=== PATIENT | male | born 1950 | race Caucasian/White ===

== ENCOUNTER 2019-03-26 09:55 | Emergency (ER) | payer MEDICARE ==
[~2019-03-26] VITALS: Ht 172.7 cm; Wt 89.4 kg
[2019-03-26 10:50] LABS: ABSOLUTE BASOPHILS 0.1 thou/uL (0.0-0.2); ABSOLUTE EOSINOPHILS 0.6 thou/uL (0.0-0.7); ABSOLUTE LYMPHOCYTES 1.4 thou/uL (0.8-5.3); ABSOLUTE MONOCYTES 1.2 thou/uL (0.0-1.2); ABSOLUTE NEUTROPHILS 10.6 thou/uL (1.6-8.1); BASOPHILS 0.7 %; EOSINOPHILS 4.4 %; HEMATOCRIT 39.9 % (42.0-52.0); HEMOGLOBIN 13.4 gm/dL (14.0-18.0); LYMPHOCYTES 9.7 %; MCH 30.7 pg (26.0-34.0); MCHC 33.5 g/dL (28.0-37.0); MCV 91.6 fL (80.0-100.0); MONOCYTES 8.7 %; MPV 7.3 fl. (7.2-11.1); NUCLEATED RBCS 0 /100WBC; PLATELET COUNT* 495 thou/uL (150-400); POLYS 76.5 %; RBC 4.35 mil/uL (4.50-6.00); RDW-CV 14.4 % (10.5-14.5); WBC 13.9 thou/uL (4.0-11.0)
[2019-03-26 10:58] LABS: CALCIUM 8.8 mg/dL (8.5-10.1); POTASSIUM 3.4 mmol/L (3.5-5.1)
[2019-03-26 11:03] LABS: ALBUMIN 3.2 g/dL (3.4-5.0); TOTAL BILIRUBIN 0.4 mg/dL (<0.1-1.0); TOTAL PROTEIN 7.4 g/dL (6.4-8.2)
[2019-03-26] MEDS ORDERED: BACTRIM DS TAB1 EACH PO ×2 (11:48→11:49)
[2019-03-26] MEDS ORDERED: KEFLEX500 M1 PO ×2 (11:48→11:49)
[2019-03-26] MEDS ORDERED: TRAMADOL 50 MG50 MG PO (11:49)
[2019-03-26 12:20] VITALS: BP 169/103
== END 2019-03-26 12:22 | disposition home or self-care (01) ==
LOC: M.ERS 09:55
PROVIDERS: Nurse Practitioner Family
DX: L03.317 Cellulitis of buttock (principal); L73.9 Follicular disorder, unspecified; Z88.0 Allergy status to penicillin; Z91.018 Allergy to other foods; Z88.8 Allergy status to other drugs, medicaments and biological substances

== ENCOUNTER 2021-07-18 09:32 | Inpatient (IN) | payer MEDICARE ==
[~2021-07-18] VITALS: Ht 170.2 cm; Wt 79.4 kg
[~2021-07-18 09:32] MED LIST: BACTRIM DS TAB1 EACH PO; KEFLEX500 M1 PO; TRAMADOL 50 MG50 MG PO
[2021-07-18 09:35] VITALS: BP 171/83
[2021-07-18 10:27] LABS: HEMATOCRIT 44.4 % (42.0-52.0); HEMOGLOBIN 14.8 gm/dL (14.0-18.0); MCH 30.3 pg (26.0-34.0); MCHC 33.3 g/dL (28.0-37.0); MPV 7.7 fl. (7.2-11.1); NUCLEATED RBCS 0 /100WBC; PLATELET COUNT* 330 thou/uL (150-400); RBC 4.88 mil/uL (4.50-6.00); RDW-CV 14.1 % (10.5-14.5); WBC 16.3 thou/uL (4.0-11.0)
[2021-07-18 10:34] LABS: CALCIUM 8.3 mg/dL (8.5-10.1); CREATININE 1.1 mg/dL (0.6-1.3)
[2021-07-18 10:38] LABS: TOTAL BILIRUBIN 0.7 mg/dL (<0.1-1.0); TOTAL PROTEIN 6.7 g/dL (6.4-8.2)
--- NOTE | 2021-07-18 12:16 | EKG ---
[place] [address] ELECTROCARDIOGRAM REPORT Name: BERNADETTE SANCHEZ Room: [facility]#: [id number] Admission: 07/18/21 Attend Phys: Discharge: Date of : 48 Date of Service: 07/18/21939 Report #: [id number] THIS REPORT FOR: //name// [facility] ED Test Date: 2021-07-18 Test Time: 09:40:27 Pat Name: BERNADETTE SANCHEZ Department: Room: Gender: Mechanical Maintenance Supervisor: : 1950 Requested By: Jose Enrique More Order Number: [id number] MD: Tito Mccrary Measurements Intervals [place] Rate: 104 P: 47 DE: 139 QRS: 37 QRSD: 70 T: 29 QT: 309 QTc: 407 Interpretive Statements Sinus tachycardia No previous ECG available for comparison Electronically Signed On 07-18-2021 12:16:21 [employer] by Tito Mccrary [email or web address] <ELECTRONICALLY SIGNED> By: Tito Mccrary MD, [facility] 07/18/21 1216 0940 [id number] Tito Mccrary MD, FACC /EPI
[2021-07-18 12:33] LABS: ABSOLUTE MONOCYTES 0.3 thou/uL (0.0-1.2); PLATELET ESTIMATE ADEQUATE
[2021-07-18 12:48] LABS: URINE BLOOD NEGATIVE (Negative); URINE COLOR YELLOW; URINE GLUCOSE-RANDOM NEGATIVE (Negative); URINE KETONES 1+ (Negative); URINE LEUKOCYTES-REFLEX NEGATIVE (Negative); URINE NITRITE-REFLEX NEGATIVE (Negative); URINE PROTEIN 2+ (Negative); URINE UROBILINOGEN 0.2 E.U./dl (0.2-1.0)
[2021-07-18 12:50] LABS: ICTOTEST (BILI CONFIRMATORY) Negative (Negative); URINE BILIRUBIN 1+ (Negative); URINE CLARITY HAZY
[2021-07-18 13:00] LABS: BACTERIA-REFLEX None Seen /HPF (None Seen); CASTS None Seen /LPF (None Seen); CRYSTALS None Seen /LPF (None Seen); MUCUS 0-3 Light strn/LPF (None Seen); SQUAMOUS 0-3 Few /LPF (0-3); URINE RBC None Seen /HPF (0-2); URINE WBC-REFLEX 0-5 Rare /HPF (0-5)
[2021-07-18 16:45] LABS: INFLUENZA A ANTIGEN Negative (Negative); INFLUENZA B ANTIGEN Negative (Negative)
[2021-07-18 17:35] VITALS: BP 145/75
--- NOTE | 2021-07-18 19:35 | NUR ---
CALLED ASKING FOR UPDATE. EXPLAIN TO THAT PT IS RESTING COMFORTABLY IN BED AND HAS NO COMPLAINTS AT THIS TIME. ENCOURAGED TO CALL ANY TIME SHE WANTS AN UPDATE.
[2021-07-18 21:35] VITALS: BP 119/75
[2021-07-19 01:35] VITALS: BP 119/75
[2021-07-19 05:45] VITALS: BP 132/70
[2021-07-19 08:53] LABS: HEMATOCRIT 40.5 % (42.0-52.0); HEMOGLOBIN 13.6 gm/dL (14.0-18.0); MCH 30.8 pg (26.0-34.0); MCHC 33.6 g/dL (28.0-37.0); MCV 91.7 fL (80.0-100.0); MPV 7.5 fl. (7.2-11.1); RBC 4.42 mil/uL (4.50-6.00); RDW-CV 14.2 % (10.5-14.5); WBC 15.6 thou/uL (4.0-11.0)
[2021-07-19 09:08] LABS: ALBUMIN 2.3 g/dL (3.4-5.0); CALCIUM 7.7 mg/dL (8.5-10.1); CREATININE 1.1 mg/dL (0.6-1.3); MAGNESIUM 2.1 mg/dL (1.8-2.4); POTASSIUM 3.7 mmol/L (3.5-5.1); TOTAL BILIRUBIN 0.4 mg/dL (<0.1-1.0); TOTAL PROTEIN 6.2 g/dL (6.4-8.2)
[2021-07-19 09:37] VITALS: BP 132/61
[2021-07-19 13:43] VITALS: BP 137/72
[2021-07-19 17:43] VITALS: BP 172/93
[2021-07-19 21:28] VITALS: BP 140/80
[2021-07-20 03:43] LABS: HEMATOCRIT 39.1 % (42.0-52.0); HEMOGLOBIN 12.9 gm/dL (14.0-18.0); MCH 30.1 pg (26.0-34.0); MCHC 33.1 g/dL (28.0-37.0); MCV 90.8 fL (80.0-100.0); MPV 7.6 fl. (7.2-11.1); RBC 4.31 mil/uL (4.50-6.00); RDW-CV 14.8 % (10.5-14.5); WBC 17.2 thou/uL (4.0-11.0)
[2021-07-20 04:10] LABS: ALBUMIN 2.1 g/dL (3.4-5.0); CALCIUM 7.5 mg/dL (8.5-10.1); CREATININE 1.1 mg/dL (0.6-1.3); MAGNESIUM 2.3 mg/dL (1.8-2.4); POTASSIUM 3.9 mmol/L (3.5-5.1); TOTAL BILIRUBIN 0.3 mg/dL (<0.1-1.0); TOTAL PROTEIN 5.9 g/dL (6.4-8.2)
[2021-07-20 07:13] VITALS: BP 153/87
--- NOTE | 2021-07-20 09:41 | NUR ---
Pt is admitted to the hospital on 07/18/21 for abdominal pain/Covid. Called at: [phone] to complete assessment. Pt lives with in a house with one step to enter. Pt was previously independent in ADL's and Mobility. No hx of HH, SNF, or DME. Pt fills his prescriptions at [facility] in [place]. Pt saw his PCP a month ago. Pt currently does not have DPOA paperwork. to discuss with spouse and we discussed paperwork can be completed while patient is in the hospital. CM to follow for discharge planning.
--- NOTE | 2021-07-20 18:15 | NUR ---
CM FOLLOWUP PT NOT MED CLEAR. PT ON 6L O2. CM TO FOLLOW FOR DC PLANNING NEEDS.
[2021-07-20 20:30] VITALS: BP 153/69
[2021-07-21 00:16] VITALS: BP 138/85
[2021-07-21 04:00] VITALS: BP 155/82
--- NOTE | 2021-07-21 04:55 | NUR ---
PT AO X4 UP AMBULATING IN ROOM. HE IS ON 6L NC AT START OF SHIFT, NOW ON 12L HFNC AND HAVING AN HARD TIME KEEPING SAT>90%. HE IS HAVING INCREASED COUGHING AND PRODUCION THIS PM SHIFT. MY PT IS A BIT IMPULISIVE. CALL LIGHT IN REACH AND BED ALARM ON FOR PT SAFETY
[2021-07-21 07:08] LABS: GLYCOHEMOGLOBIN (HGB A1C) 6.4 % (4.8-5.6)
[2021-07-21 08:22] VITALS: BP 148/87
[2021-07-21 09:50] LABS: HEMATOCRIT 41.8 % (42.0-52.0); HEMOGLOBIN 13.7 gm/dL (14.0-18.0); MCH 29.8 pg (26.0-34.0); MCHC 32.8 g/dL (28.0-37.0); MCV 91.1 fL (80.0-100.0); MPV 7.6 fl. (7.2-11.1); RBC 4.59 mil/uL (4.50-6.00); RDW-CV 14.4 % (10.5-14.5); WBC 15.8 thou/uL (4.0-11.0)
[2021-07-21 10:01] LABS: ALBUMIN 2.5 g/dL (3.4-5.0); CALCIUM 7.9 mg/dL (8.5-10.1); CREATININE 1.1 mg/dL (0.6-1.3); MAGNESIUM 2.4 mg/dL (1.8-2.4); POTASSIUM 3.7 mmol/L (3.5-5.1); TOTAL BILIRUBIN 0.5 mg/dL (<0.1-1.0); TOTAL PROTEIN 6.7 g/dL (6.4-8.2)
[2021-07-21 12:00] VITALS: BP 140/75
[2021-07-21 12:20] LABS: BE -3.9 mmol/L (-2 to +3); PO2 84.4 mmHg (75.0-100.0); pH 7.407 (7.340-7.450)
--- NOTE | 2021-07-21 13:31 | NUR ---
Nutrition: Pt admitted to COVID unit. Consult for wt change. Per [employer], wt is 175#. Spoke with RN: she is unaware of any wt loss. She did say pt ate 50% of last meal. N/V resolved. Regular diet ordered. Physician indiacted mild PCM based on hypoalbuminemia. Labs: WBC 15.8, alb 2.5, prealb 20.7, BG 148-168. BMI is 27.4. No nutrition interventions needed at this time. Consider low risk.
--- NOTE | 2021-07-21 15:54 | NUR ---
CM FOLLOWUP PT NOT MED CLEAR. PT ON 10L O2. CM TO FOLLOW FOR DC PLANNING.
[2021-07-21 16:00] VITALS: BP 138/71
--- NOTE | 2021-07-21 17:29 | NUR ---
PATIENT RESTING IN BED. MIDLINE TO LEFT UPPER ARM, SALINE LOCKED, PATENT. 92% ON 11L HIGH FLOW OXYGEN. BLOOD SUGARS MONITOR, INSULIN GIVEN NEEDED. REMAINS ON CONTINUOUS TELE MONITORING. ALL QUESTIONS AND CONCERNS ADDRESSED.
[2021-07-22 00:15] VITALS: BP 138/58
[2021-07-22 04:20] VITALS: BP 127/55
[2021-07-22 04:43] LABS: HEMATOCRIT 37.3 % (42.0-52.0); HEMOGLOBIN 12.2 gm/dL (14.0-18.0); MCH 29.8 pg (26.0-34.0); MCHC 32.7 g/dL (28.0-37.0); MCV 90.9 fL (80.0-100.0); MPV 8.1 fl. (7.2-11.1); NUCLEATED RBCS 0 /100WBC; PLATELET COUNT* 433 thou/uL (150-400); RBC 4.11 mil/uL (4.50-6.00); RDW-CV 14.5 % (10.5-14.5); WBC 11.1 thou/uL (4.0-11.0)
[2021-07-22 05:12] LABS: ALBUMIN 2.4 g/dL (3.4-5.0); CALCIUM 7.6 mg/dL (8.5-10.1); CREATININE 1.1 mg/dL (0.6-1.3); MAGNESIUM 2.3 mg/dL (1.8-2.4); POTASSIUM 3.8 mmol/L (3.5-5.1); TOTAL BILIRUBIN 0.4 mg/dL (<0.1-1.0); TOTAL PROTEIN 6.2 g/dL (6.4-8.2)
--- NOTE | 2021-07-22 05:18 | NUR ---
PT AO X4 LUING IN BED AT TIME OF ASSESSMENT. HE IS CURRENTLY ON 11L HFNC SATTING APPROPRIATELY. PT IS NSR ON TELEMETRY, DENIES PAIN. MEDS PER EMAR. PT VOIDING PER URINAL. MAKES NEEDS KNOWN WITH HOURLY ROUNDING. CALL LIGHT WITHIN REACH FOR PT SAFETY.
[2021-07-22 06:48] LABS: ABSOLUTE LYMPHOCYTES 0.9 thou/uL (0.8-5.3); ABSOLUTE MONOCYTES 0.4 thou/uL (0.0-1.2); ABSOLUTE NEUTROPHILS 9.8 thou/uL (1.6-8.1); PLATELET ESTIMATE INCREASED
[2021-07-22 08:15] VITALS: BP 142/65
[2021-07-22 12:00] VITALS: BP 153/80
--- NOTE | 2021-07-22 13:18 | NUR ---
CM FOLLOWUP PT NOT MED CLEAR AND ON 11L O2. CM TO FOLLOW FOR DC PLANNING.
--- NOTE | 2021-07-22 14:17 | CON ---
[address] [address] CONSULTATION Name: BERNADETTE SANCHEZ Room: [address] IN M.R.#: [id number] Admission: 07/18/21 Attend Phys: Libseth Bonilla MD Discharge: Date of : 48 Report #: [id number] THIS REPORT FOR: cc: FAM - No family physician/PCP FAM - No family physician/PCP Chas Joaquin MD ~ DATE OF CONSULTATION: 07/21/2021 CONSULT HAS BEEN REQUESTED BY: Lisbeth Bonilla MD INDICATION FOR CONSULTATION: Acute hypoxemic respiratory failure secondary to COVID-19. HISTORY OF PRESENT ILLNESS: A 70-year-old gentleman, nonsmoker, no significant past medical history, now here with initially abdominal complaints, nausea, vomiting, and diarrhea, also had fever and chills and also developed respiratory complaints, short of breath, coughing. His dropping O2 saturation is now up to 11 liters nasal cannula to maintain O2 saturation in the low 90s. The patient upon admission was requiring 2 liters of oxygen to maintain O2 saturation. There is mild swelling of lower extremities. PAST MEDICAL HISTORY: There is no significant past medical history. ALLERGIES: REPORTS ALLERGY TO PENICILLIN; however, tolerates cephalosporins as well as carbapenem type antibiotics without problems. ALCOHOL CAUSES NAUSEA AND VOMITING. FISH OIL. SOCIAL HISTORY: Lifetime nonsmoker. No known history of heavy alcohol use or illegal drug use. CURRENT MEDICATIONS: List in [employer] reviewed. PHYSICAL EXAMINATION: GENERAL: He is alert, awake and oriented. VITAL SIGNS: In the records. These are reviewed. NECK: Does not show raised JVP. CHEST: Breath sounds are bilaterally equal. Rales at bilateral bases. HEART: Regular. No murmur. ABDOMEN: Soft and nontender. EXTREMITIES: Lower extremities, trace edema, no calf tenderness. LABORATORY DATA: The patient's chest x-ray, CTA chest is ordered. CT abdomen and pelvis and lab work in [employer] reviewed. ASSESSMENT AND PLAN: [place] [address] CONSULTATION Name: BERNADETTE SANCHEZ Room: [address] IN [facility].#: [id number] Admission: 07/18/21 Attend Phys: Lisbeth Bonilla MD Discharge: Date of : 48 Report #: [id number] 1. Acute hypoxemic respiratory failure secondary to COVID-19, titrate oxygen. Avoid supine sleep. If oxygenation worsens, then we will have a low threshold of adding a BiPAP while asleep. 2. COVID-19. Increase the dexamethasone dose. Continue with remdesivir. Follow LFTs. The patient may also benefit from Actemra. Unfortunately, we do not have that available. 3. Pulmonary infiltrates. Linezolid and meropenem is a reasonable choice and I would continue the same. We will also give 3 doses of azithromycin to maintain some atypical coverage. The patient has had 5 doses of doxycycline earlier. 4. Nausea and vomiting. Note that this was the patient's initial complaint. 5. Elevated D-dimer. CTA chest does not show clot. Recommend also obtaining an echo as well as venous Dopplers. 6. Deep venous thrombosis prophylaxis. Increased Lovenox to 40 b.i.d. 7. Clostridium difficile prophylaxis, Lactinex. 8. Hyperglycemia, insulin sliding scale. 9. Gastrointestinal prophylaxis, on Protonix. 10. Mild fluid overload. The patient's BUN is mildly elevated, likely has some intravascular fluid depletion. 11. Vascular access. For now, I decided to only watch, but I will consider Lasix tomorrow. Thanks for this consultation. <ELECTRONICALLY SIGNED> By: Chas Joaquin MD 07/22/21 1417 2159 [id number] Joaquin MD /nt
[2021-07-22 16:00] VITALS: BP 144/75
[2021-07-22 20:11] VITALS: BP 150/82
[2021-07-23 00:50] VITALS: BP 172/84
--- NOTE | 2021-07-23 03:59 | NUR ---
PT A&OX4, VSS ON 7L O2 HF NC, PT UP AD KEYUR. SR ON TELE MONITOR. IV SALINE LOCKED. NO CO PAIN OR DISCOMFORT. PT SLEEPING WELL, WILL CONTINUE TO MONITOR.
[2021-07-23 04:28] VITALS: BP 144/76
[2021-07-23 05:22] LABS: HEMATOCRIT 36.8 % (42.0-52.0); HEMOGLOBIN 12.2 gm/dL (14.0-18.0); MCH 30.1 pg (26.0-34.0); MCHC 33.1 g/dL (28.0-37.0); MCV 90.9 fL (80.0-100.0); MPV 7.7 fl. (7.2-11.1); RBC 4.05 mil/uL (4.50-6.00); RDW-CV 14.3 % (10.5-14.5)
[2021-07-23 06:21] LABS: ALBUMIN 2.3 g/dL (3.4-5.0); CALCIUM 7.8 mg/dL (8.5-10.1); CREATININE 0.9 mg/dL (0.6-1.3); POTASSIUM 4.6 mmol/L (3.5-5.1); TOTAL BILIRUBIN 0.5 mg/dL (<0.1-1.0); TOTAL PROTEIN 5.6 g/dL (6.4-8.2)
[2021-07-23 08:00] VITALS: BP 143/71
[2021-07-23 12:00] VITALS: BP 137/67
--- NOTE | 2021-07-23 12:49 | 2DMMODE ---
[place] [address] 2 D/M-MODE ECHOCARDIOGRAM Name: BERNADETTE SANCHEZ Room: [address] IN M.R.#: [id number] Admission: 07/18/21 Attend Phys: Lisbeth Bonilla, Discharge: Date of : 48 Date of Service: 07/22/21 1110 Report #: [id number] THIS REPORT FOR: cc: FAM - No family physician/PCP FAM - No family physician/PCP Kobe Kulkarni MD [facility] ~ APPROVED REPORT Study performed: 07/22/2021 09:54:05 EXAM: Comprehensive 2D, Doppler, and color-flow Echocardiogram Patient Location: Bedside BSA: 1.91 HR: 79 bpm BP: 142/65 mmHg Other Information Study Quality: Good Indications Dyspnea cOVID 2D Dimensions IVSd: 11.20 (7-11mm) LVOT Diam: 20.63 (18-24mm) LVDd: 52.76 mm PWd: 11.78 (7-11mm) Ascending Ao: 30.22 (22-36mm) LVDs: 28.56 (25-40mm) Aortic Root: 25.35 mm Volumes Left Atrial Volume (Systole) LA ESV Index: 16.30 mL/m2 Aortic Valve AoV Peak Rito.: 1.44 m/s AO Peak Gr.: 8.25 mmHg LVOT Max P.89 mmHg AO Mean Gr.: 4.62 mmHg LVOT Mean P.77 mmHg LVOT Max V: 1.21 m/s AO V2 VTI: 27.84 cm LVOT Mean V: 0.76 m/s ELMER (VTI): 3.15 cm2 LVOT V1 VTI: 26.23 [place] [address] 2 D/M-MODE ECHOCARDIOGRAM Name: BERNADETTE SANCHEZ Room: [address] M.R.#: [id number] Admission: 07/18/21 Attend Phys: Lisbeth Bonilla, Discharge: Date of : 48 Date of Service: 07/22/21 1110 Report #: [id number] E/A Ratio: 1.11 MV Decel. Time: 277.64 ms MV E Max Rito.: 0.95 m/s MV PHT: 80.52 ms MVA (PHT): 2.73 cm2 TDI E/Lateral E': 13.57 Lateral E' Rito.: 0.07 m/s Pulmonary Valve PV Peak Rito.: 1.19 m/s PV Peak Gr.: 5.62 mmHg Tricuspid Valve RAP Estimate: 20.00 mmHg TR Peak Gr.: 22.19 mmHg RVSP: 42.19 mmHg PA Pressure: 42.19 mmHg Left Ventricle The left ventricle is normal size. There is normal LV segmental wall motion. There is normal left ventricular wall thickness. Left ventricular systolic function is normal. The left ventricular ejection fraction is within the normal range. LVEF is 60-65%. Right Ventricle The right ventricle is normal size. The right ventricular systolic function is normal. Atria The left atrium size is normal. The right atrium size is normal. Aortic Valve The Aortic valve is sclerotic. No aortic regurgitation is present. There is no aortic valvular stenosis. Mitral Valve The mitral valve is normal in structure. There is no mitral valve regurgitation noted. No evidence of mitral valve stenosis. Tricuspid Valve The tricuspid valve is normal in structure. Trace tricuspid regurgitation. Pulmonic Valve The pulmonary valve is normal in structure. [place] [address] 2 D/M-MODE ECHOCARDIOGRAM Name: BERNADETTE SANCHEZ Room: [address] IN [facility]#: [id number] Admission: 07/18/21 Attend Phys: Lisbeth Bonilla, Discharge: Date of : 48 Date of Service: 07/22/21 1110 Report #: [id number] valvular regurgitation. Great Vessels The aortic root is normal in size. IVC is dilated. Pericardium There is no pericardial effusion. <Conclusion> Left ventricular systolic function is normal. The left ventricular ejection fraction is within the normal range. <ELECTRONICALLY SIGNED> By: Kobe Kulkarni MD, [facility] 07/22/21 1110 1110 111 Kobe Kulkarni MD, [facility] /INF
[2021-07-23 16:00] VITALS: BP 144/60
--- NOTE | 2021-07-23 16:30 | NUR ---
CM FOLLOWUP PT NOT MED CLEAR AND ON 6L O2. CM TO FOLLOW FOR DC NEEDS.
[2021-07-24 01:13] VITALS: BP 135/78
[2021-07-24 04:08] LABS: HEMOGLOBIN 12.2 gm/dL (14.0-18.0); MCH 29.7 pg (26.0-34.0); MCV 90.1 fL (80.0-100.0); RBC 4.1 mil/uL (4.50-6.00); RDW-CV 14.1 % (10.5-14.5); WBC 15.7 thou/uL (4.0-11.0)
[2021-07-24 04:18] VITALS: BP 165/83
[2021-07-24 04:45] LABS: ALBUMIN 2.6 g/dL (3.4-5.0); CALCIUM 7.8 mg/dL (8.5-10.1); CREATININE 0.9 mg/dL (0.6-1.3); MAGNESIUM 2.5 mg/dL (1.8-2.4); POTASSIUM 4.1 mmol/L (3.5-5.1); TOTAL BILIRUBIN 0.6 mg/dL (<0.1-1.0); TOTAL PROTEIN 5.9 g/dL (6.4-8.2)
[2021-07-24 08:00] VITALS: BP 137/80
[2021-07-24 11:04] VITALS: BP 137/80
--- NOTE | 2021-07-24 16:08 | NUR ---
CM FOLLOWUP PT DC'D HOME. PT COMPLETED REST/EX PRIOR TO DC AND DID NOT REQUIRE HOME O2.
== END 2021-07-24 12:00 | disposition home or self-care (01) | DRG 177 ==
LOC: M.ERS 09:32 → M.TBA-ER 13:34 → M.ORTHSURG 07-20 07:39
PROVIDERS: Emergency Medicine; Internal Medicine Critical Care Medicine; ADMIT Internal Medicine; ATTEND Internal Medicine
PROC: 5A0935A Assistance with Respiratory Ventilation, Less than 24 Consecutive Hours, High Flow/Velocity Cannula (ICD-10-PCS; principal; 2021-07-18)
PROC: XW033E5 Introduction of Remdesivir Anti-infective into Peripheral Vein, Percutaneous Approach, New Technology Group 5 (ICD-10-PCS; 2021-07-20)
PROC: 05HC33Z Insertion of Infusion Device into Left Basilic Vein, Percutaneous Approach (ICD-10-PCS; 2021-07-21)
PROC: 5A0945A Assistance with Respiratory Ventilation, 24-96 Consecutive Hours, High Flow/Velocity Cannula (ICD-10-PCS; 2021-07-21)
PROC: 5A0935A Assistance with Respiratory Ventilation, Less than 24 Consecutive Hours, High Flow/Velocity Cannula (ICD-10-PCS; 2021-07-23)
DX: U07.1 COVID-19 (principal); J96.01 Acute respiratory failure with hypoxia; J12.82 Pneumonia due to coronavirus disease 2019; E44.1 Mild protein-calorie malnutrition; R73.9 Hyperglycemia, unspecified; E87.70 Fluid overload, unspecified; E86.0 Dehydration; E88.09 Other disorders of plasma-protein metabolism, not elsewhere classified; R80.9 Proteinuria, unspecified; Z68.27 Body mass index [BMI] 27.0-27.9, adult; Z79.899 Other long term (current) drug therapy; Z88.0 Allergy status to penicillin